=== PATIENT | female | born 1980 | race Caucasian/White ===

== ENCOUNTER 2017-10-01 01:38 | Emergency (ER) | payer OTHER ==
[~2017-10-01] VITALS: Ht 152.4 cm; Wt 65.8 kg
[2017-10-01] MEDS ORDERED: DOLOGESIC 500-1 EACH PO (07:10)
[2017-10-01] MEDS ORDERED: ZYNCOF 20-400120 ML PO (07:10)
== END 2017-10-01 16:54 | disposition home or self-care (01) ==
LOC: ER 01:38
DX: J11.1 Influenza due to unidentified influenza virus with other respiratory manifestations (principal)

== ENCOUNTER 2021-10-26 17:24 | Emergency (ER) | payer OTHER ==
[~2021-10-26] VITALS: Ht 154.9 cm; Wt 68.0 kg
[~2021-10-26 17:24] MED LIST: DOLOGESIC 500-1 EACH PO; ZYNCOF 20-400120 ML PO
== END 2021-10-26 23:59 | disposition home or self-care (01) ==
LOC: ER 17:24
DX: R07.89 Other chest pain (principal); R00.2 Palpitations